=== PATIENT | female | born 1990 | race American Indian/Alaskan Native ===

== ENCOUNTER 2020-11-29 11:03 | Emergency (ER) | payer MEDICAID ==
[2020-11-29 11:23] VITALS: BP 119/76
--- NOTE | 2020-11-29 11:33 | Emergency Department Report ---
ED General Adult HPI - General Chief complaint: Dental/Oral Stated complaint: TOOTH PAIN/SPASMS Time Seen by Provider: 11/29/20 11:28 Source: patient Mode of arrival: Ambulatory Limitations: No Limitations - History of Present Illness Initial comments: 30-year-old -[place] female patient presents with complaints of continued right arm pain and spasms x approximately 2 weeks. And left lower dental pain x4 days. Patient states she was shocked by an elevator on 11/13/2020. Patient states she was seen at [facility] where an x-ray was performed. She denies having blood work done. She did not lose consciousness per patient. She states she was prescribed ibuprofen and methocarbamol and her symptoms are not improving. She reports she continues to feel pain and spasms in her right upper arm. No neck pain per patient or difficulty moving her arm. As for the dental pain, she reports she broke her tooth and now there is swelling to her gums and redness. She is having difficulty chewing. She denies difficulty opening her jaw or swallowing. No fever/chills/sweats per patient. She denies any past medical history - Related Data Previous Rx's Medication Instructions Recorded Last Taken Type Acetaminophen/Codeine [Tylenol 1 tab PO Q8H PRN #8 tab 11/29/20 Unknown Rx /Codeine # 3 tab] Cyclobenzaprine [Flexeril] 10 mg PO TID PRN #20 tablet 11/29/20 Unknown Rx Naproxen 500 mg PO BID PRN #20 tablet 11/29/20 Unknown Rx Penicillin V Potassium 500 mg PO QID 7 Days #28 tablet 11/29/20 Unknown Rx Allergies Allergy/AdvReac Type Severity Reaction Status Date / Time No Known Allergies Allergy Verified 06/22/13 09:33 ED Review of Systems ROS: Stated complaint: TOOTH PAIN/SPASMS Other details as noted in HPI Constitutional: denies: chills, diaphoresis, fever, malaise, weakness Respiratory: denies: shortness of breath Cardiovascular: denies: chest pain Musculoskeletal: myalgia. denies: joint swelling Skin: denies: change in color Neurological: denies: numbness, paresthesias ED Past Medical Hx - Past Medical History Hx Hypertension: Yes - Surgical History Past Surgical History?: No - Social History Smoking Status: Never Smoker - Medications Home Medications: Home Medications Medication Instructions Recorded Confirmed Last Taken Type Acetaminophen/Codeine [Tylenol 1 tab PO Q8H PRN #8 tab 11/29/20 Unknown Rx /Codeine # 3 tab] Cyclobenzaprine [Flexeril] 10 mg PO TID PRN #20 tablet 11/29/20 Unknown Rx Naproxen 500 mg PO BID PRN #20 tablet 11/29/20 Unknown Rx Penicillin V Potassium 500 mg PO QID 7 Days #28 tablet 11/29/20 Unknown Rx ED Physical Exam - General Limitations: No Limitations General appearance: alert, in no apparent distress - Head Head exam: Present: atraumatic, normocephalic - Eye Eye exam: Present: normal appearance - Expanded ENT Exam Expanded Mouth exam: Present: normal external inspection. Absent: drooling, trismus, muffled voice 1 - Fractured, Dental Tenderness, Other (Swelling and erythema noted without obvious dental abscess; no overlying facial swelling noted) - Neck Neck exam: Present: normal inspection - Respiratory Respiratory exam: Present: normal lung sounds bilaterally. Absent: respiratory distress - Cardiovascular Cardiovascular Exam: Present: regular rate, normal rhythm - Expanded Upper Extremity Exam Right Upper Arm exam: Present: full ROM, tenderness (Tenderness to palpation noted to muscles without swelling, bruising, redness, or bony pain noted; normal sensat ion is noted along with normal ulnar and radial pulses). Absent: swelling, ecchymosis, deformity Elbow exam: Present: normal inspection Forearm Wrist exam: Present: normal inspection Hand Wrist exam: Present: normal inspection - Neurological Exam Neurological exam: Present: alert, oriented X3, normal gait - Psychiatric Psychiatric exam: Present: normal affect, normal mood - Skin Skin exam: Present: warm, dry, intact, normal color. Absent: rash ED Course Vital Signs 11/29/20 11:21 Temperature 98.8 F Pulse Rate 86 Respiratory 18 Rate Blood Pressure 119/76 O2 Sat by Pulse 100 Oximetry ED Medical Decision Making - Lab Data Result diagrams: 11/29/20 12:20 11/29/20 12:20 Lab Results 11/29/20 11/29/20 Range/Units 12:20 12:20 WBC 5.5 (4.5-11.0) K/mm3 RBC 4.40 (3.65-5.03) M/mm3 Hgb 12.6 (10.1-14.3) gm/dl Hct 37.0 (30.3-42.9) % MCV 84 (79-97) fl MCH 29 (28-32) pg MCHC 34 (30-34) % RDW 13.8 (13.2-15.2) % Plt Count 196 (140-440) K/mm3 Lymph % (Auto) 27.1 (13.4-35.0) % Bureau % (Auto) 9.0 H (0.0-7.3) % Eos % (Auto) 0.8 (0.0-4.3) % Baso % (Auto) 0.4 (0.0-1.8) % Lymph # (Auto) 1.5 (1.2-5.4) K/mm3 Bureau # (Auto) 0.5 (0.0-0.8) K/mm3 Eos # (Auto) 0.0 (0.0-0.4) K/mm3 Baso # (Auto) 0.0 (0.0-0.1) K/mm3 Seg Neutrophils % 62.7 (40.0-70.0) % Seg Neutrophils # 3.4 (1.8-7.7) K/mm3 Sodium 141 (137-145) mmol/L Potassium 4.3 (3.6-5.0) mmol/L Chloride 106.0 (98-107) mmol/L Carbon Dioxide 28 (22-30) mmol/L Anion Gap 11 mmol/L BUN 10 (7-17) mg/dL Creatinine 0.6 (0.6-1.2) mg/dL Estimated GFR > 60 ml/min BUN/Creatinine Ratio 17 % Glucose 60 L (65-100) mg/dL Calcium 9.2 (8.4-10.2) mg/dL Magnesium 2.00 (1.7-2.3) mg/dL Total Creatine Kinase 175 H (30-135) units/L - Medical Decision Making 30-year-old -[place] female patient presents with complaints of continued right arm pain and spasms x approximately 2 weeks. And left lower dental pain x4 days. Patient states she was shocked by an elevator on 11/13/2020. Patient states she was seen at [facility] where an x-ray was performed. She denies having blood work done. She did not lose consciousness per patient. She states she was prescribed ibuprofen and methocarbamol and her symptoms are not improving. She reports she continues to feel pain and spasms in her right upper arm. No neck pain per patient or difficulty moving her arm. As for the dental pain, she reports she broke her tooth and now there is swelling to her gums and redness. She is having difficulty chewing. She denies difficulty opening her jaw or swallowing. No fever/chills/sweats per patient. She denies any past medical history No bony abnormalities or neuro deficits noted on exam. Creatinine kinase minimally elevated at 175 and no significant abnormalities are noted on CBC, CM P, or mag. Recommend patient follows up with primary care for further evaluation. She is to discontinue Robaxin and try Flexeril. She is well- appearing, her vitals are within normal limits, she is stable for discharge home. Discussed signs and symptoms that should prompt immediate return to the emergency department in detail patient verbalized understanding. Critical care attestation.: If time is entered above; I have spent that time in minutes in the direct care of this critically ill patient, excluding procedure time. ED Disposition Clinical Impression: Dental infection, Right arm pain Disposition: TO HOME OR SELFCARE Is pt being admited?: No Does the pt Need Aspirin: No Condition: Stable Instructions: Muscle Cramps and Spasms, Dental Abscess Additional Instructions: Discontinue taking methocarbamol Prescriptions: Cyclobenzaprine [Flexeril] 10 mg PO TID PRN #20 tablet PRN Reason: Muscle Spasm Naproxen 500 mg PO BID PRN #20 tablet PRN Reason: pain Penicillin V Potassium 500 mg PO QID 7 Days #28 tablet Acetaminophen/Codeine [Tylenol /Codeine # 3 tab] 1 tab PO Q8H PRN #8 tab PRN Reason: Pain , Severe (7-10) Referrals: [facility] [Provider Group] - 3-5 Days Forms: Work/School Release Form(ED)
[2020-11-29 12:49] LABS: Basophils % (Auto) 0.4 % (0.0-1.8); Eosinophils % (Auto) 0.8 % (0.0-4.3); Hemoglobin 12.6 gm/dl (10.1-14.3); Lymphocytes # (Auto) 1.5 K/mm3 (1.2-5.4); Lymphocytes % (Auto) 27.1 % (13.4-35.0); Mean Corpuscular HGB Conc 34 % (30-34); Mean Corpuscular Volume 84 fl (79-97); Monocytes # (Auto) 0.5 K/mm3 (0.0-0.8); Platelet Count 196 K/mm3 (140-440); Red Cell Distribution Width 13.8 % (13.2-15.2)
[2020-11-29 13:05] LABS: Blood Urea Nitrogen 10 mg/dL (7-17); Calcium 9.2 mg/dL (8.4-10.2); Hemolysis Index 4
[2020-11-29 13:06] LABS: BUN/Creatinine Ratio 17
== END 2020-11-29 12:00 | disposition home or self-care (01) ==
LOC: ED 11:03
DX: M79.601 Pain in right arm (principal); K04.7 Periapical abscess without sinus; I10 Essential (primary) hypertension
CPT/HCPCS: 36415; 80048; 82550; 83735; 85025; 99283

== ENCOUNTER 2021-08-09 12:42 | Emergency (ER) | payer MEDICAID ==
[2021-08-09 13:16] VITALS: BP 115/59
[2021-08-09 18:02] LABS: Bacteria,Urine 2+ /HPF (Negative); Mucus,Urine 3+ /HPF
[2021-08-09 18:15] LABS: WBC,Urine > 182.0 /HPF (0.0-6.0)
[2021-08-09 18:22] LABS: Color,Urine Amber (Yellow)
[2021-08-09 18:23] LABS: Bilirubin,Urine Negative (Negative); Blood,Urine Trace (Negative); Urobilinogen,Urine < 2.0 mg/dL (<2.0)
[2021-08-09 18:30] LABS: HCG Qualitative,Urine Negative (Negative)
--- NOTE | 2021-08-09 18:30 | Emergency Department Report ---
ED ENT HPI - General Chief complaint: Dental/Oral Stated complaint: VAGINAL ITCHING/TOOTHACHE Time Seen by Provider: 08/09/21 17:37 Source: patient Mode of arrival: Ambulatory Limitations: No Limitations - History of Present Illness Initial comments: PT PRESENTS TO ED WITH COMPLAINT OF VAGINAL ITCH , TOOTHACHE complaint: tooth pain -: Gradual, days(s) Severity scale (0 -10): 2 Quality: aching Consistency: intermittent Improves with: none - Related Data Previous Rx's Medication Instructions Recorded Last Taken Type Acetaminophen/Codeine [Tylenol 1 tab PO Q8H PRN #8 tab 11/29/20 Unknown Rx /Codeine # 3 tab] Cyclobenzaprine [Flexeril] 10 mg PO TID PRN #20 tablet 11/29/20 Unknown Rx Naproxen 500 mg PO BID PRN #20 tablet 11/29/20 Unknown Rx Penicillin V Potassium 500 mg PO QID 7 Days #28 tablet 11/29/20 Unknown Rx Ciprofloxacin HCl 500 mg PO BID #14 08/09/21 Unknown Rx Fluconazole [Diflucan TAB] 100 mg PO QDAY #1 tablet 08/09/21 Unknown Rx Ketorolac [Toradol] 10 mg PO Q6H PRN #14 08/09/21 Unknown Rx Allergies Allergy/AdvReac Type Severity Reaction Status Date / Time No Known Allergies Allergy Verified 06/22/13 09:33 ED Dental HPI - General Chief complaint: Dental/Oral Stated complaint: VAGINAL ITCHING/TOOTHACHE Time Seen by Provider: 08/09/21 17:37 Source: patient Mode of arrival: Ambulatory Limitations: No Limitations - History of Present Illness Initial comments: PT PRESENTS TO ED WITH COMPLAINT OF VAGINAL ITCH , TOOTHACHE complaint: tooth pain -: Gradual, days(s) Improves with: none Worsens with: none - Related Data Previous Rx's Medication Instructions Recorded Last Taken Type Acetaminophen/Codeine [Tylenol 1 tab PO Q8H PRN #8 tab 11/29/20 Unknown Rx /Codeine # 3 tab] Cyclobenzaprine [Flexeril] 10 mg PO TID PRN #20 tablet 11/29/20 Unknown Rx Naproxen 500 mg PO BID PRN #20 tablet 11/29/20 Unknown Rx Penicillin V Potassium 500 mg PO QID 7 Days #28 tablet 11/29/20 Unknown Rx Ciprofloxacin HCl 500 mg PO BID #14 08/09/21 Unknown Rx Fluconazole [Diflucan TAB] 100 mg PO QDAY #1 tablet 08/09/21 Unknown Rx Ketorolac [Toradol] 10 mg PO Q6H PRN #14 08/09/21 Unknown Rx Allergies Allergy/AdvReac Type Severity Reaction Status Date / Time No Known Allergies Allergy Verified 06/22/13 09:33 ED Review of Systems ROS: Stated complaint: VAGINAL ITCHING/TOOTHACHE Other details as noted in HPI Constitutional: denies: chills, fever Eyes: denies: eye pain, eye discharge, vision change ENT: denies: ear pain, throat pain Respiratory: denies: cough, shortness of breath, wheezing Cardiovascular: denies: chest pain, palpitations Endocrine: no symptoms reported Gastrointestinal: denies: abdominal pain, nausea, diarrhea Genitourinary: denies: urgency, dysuria, discharge Musculoskeletal: denies: back pain, joint swelling, arthralgia Skin: denies: rash, lesions Neurological: denies: headache, weakness, paresthesias Psychiatric: denies: anxiety, depression Hematological/Lymphatic: denies: easy bleeding, easy bruising ED Past Medical Hx - Past Medical History Hx Hypertension: Yes Hx CVA: No - Social History Smoking Status: Never Smoker - Medications Home Medications: Home Medications Medication Instructions Recorded Confirmed Last Taken Type Acetaminophen/Codeine [Tylenol 1 tab PO Q8H PRN #8 tab 11/29/20 Unknown Rx /Codeine # 3 tab] Cyclobenzaprine [Flexeril] 10 mg PO TID PRN #20 tablet 11/29/20 Unknown Rx Naproxen 500 mg PO BID PRN #20 tablet 11/29/20 Unknown Rx Penicillin V Potassium 500 mg PO QID 7 Days #28 tablet 11/29/20 Unknown Rx Ciprofloxacin HCl 500 mg PO BID #14 08/09/21 Unknown Rx Fluconazole [Diflucan TAB] 100 mg PO QDAY #1 tablet 08/09/21 Unknown Rx Ketorolac [Toradol] 10 mg PO Q6H PRN #14 08/09/21 Unknown Rx ED Physical Exam - General Limitations: No Limitations General appearance: alert, in no apparent distress - Head Head exam: Present: atraumatic, normocephalic - Eye Eye exam: Present: normal appearance - ENT ENT exam: Present: mucous membranes moist - Neck Neck exam: Present: normal inspection - Respiratory Respiratory exam: Present: normal lung sounds bilaterally. Absent: respiratory distress - Cardiovascular Cardiovascular Exam: Present: regular rate, normal rhythm. Absent: systolic murmur, diastolic murmur, rubs, gallop - GI/Abdominal GI/Abdominal exam: Present: soft, normal bowel sounds - Extremities Exam Extremities exam: Present: normal inspection - Back Exam Back exam: Present: normal inspection - Neurological Exam Neurological exam: Present: alert, oriented X3 - Psychiatric Psychiatric exam: Present: normal affect, normal mood - Skin Skin exam: Present: warm, dry, intact, normal color. Absent: rash ED Course Vital Signs 08/09/21 13:14 Temperature 98.6 F Pulse Rate 83 Respiratory 16 Rate Blood Pressure 115/59 [Left] O2 Sat by Pulse 98 Oximetry Critical care attestation.: If time is entered above; I have spent that time in minutes in the direct care of this critically ill patient, excluding procedure time. ED Disposition Clinical Impression: Tooth pain, UTI (urinary tract infection) Disposition: 01 HOME / SELF CARE / HOMELESS Is pt being admited?: No Does the pt Need Aspirin: No Condition: Stable Instructions: Urinary Tract Infection, Adult Prescriptions: Ciprofloxacin HCl 500 mg PO BID #14 Fluconazole [Diflucan TAB] 100 mg PO QDAY #1 tablet Ketorolac [Toradol] 10 mg PO Q6H PRN #14 PRN Reason: Pain
== END 2021-08-09 18:58 | disposition home or self-care (01) ==
LOC: ED 12:42
DX: N39.0 Urinary tract infection, site not specified (principal); K08.89 Other specified disorders of teeth and supporting structures; I10 Essential (primary) hypertension
CPT/HCPCS: 81001; 81025; 99283